=== PATIENT | female | born 1950 | race Caucasian/White ===

== ENCOUNTER → 2020-07-12 12:33 | Outpatient (CLI) | payer MEDICARE | END | disposition home or self-care (01) | LOC: D.MRI 12:33 | PROVIDERS: ATTEND Emergency Medicine | DX: G35 Multiple sclerosis (principal); M79.601 Pain in right arm ==

== ENCOUNTER 2021-02-22 09:30 | Day surgery (SDC) | payer MEDICARE ==
[~2021-02-22] VITALS: Ht 149.9 cm; Wt 45.8 kg
[~2021-02-22 09:30] MED LIST: ALBUTEROL SULF8.5 GM INH; COZAAR25 MG PO; CRESTOR10 MG PO; GLIMEPIRIDE4 MG PO; GLUCOPHAGE1000 MG PO; HYDROCODON-ACE1 EA10 PO; KLONOPIN0.5 MG PO; REMERON15 MG PO; TOPROL XL25 MG PO; VYVANSE50 MG PO; XARELTO20 MG PO; ZOFRAN4 MG PO
[2021-02-22 10:18] LABS: BASOPHILS 0.6 % (0-2); EOSINOPHILS 7.3 % (0-7); HEMATOCRIT 34.4 % (36.0-48.0); HEMOGLOBIN 10.9 g/dL (12-16); IMMATURE GRANULOCYTES 0.5 % (0-5); LYMPHOCYTE ABS# 1.62 10x3/uL (1.18-3.74); LYMPHOCYTES 13.4 % (15-50); MCH 28.1 pg (26.0-34.0); MCHC 31.7 g/dL (31.0-37.0); MCV 88.7 fL (80.0-100.0); MEAN PLATELET VOLUME 10.4 fL (7.4-10.4); MONOCYTES 6.5 % (2-11); NEUTROPHIL ABS# 8.65 10x3/uL (1.56-6.13); NEUTROPHILS 71.7 % (40-80); PLATELET COUNT 305 10x3/uL (130-400); RBC 3.88 10x6/uL (4.00-5.40); RDW 13.6 % (11.5-14.5); WBC 12.1 10x3/uL (4.8-10.8)
[2021-02-22 10:28] LABS: ANION GAP 14.1 mmol/L (8-16); CALCIUM 9.1 mg/dL (8.5-10.1); CARBON DIOXIDE 23.3 mmol/L (21.0-32.0); POTASSIUM - SERUM 4.4 mmol/L (3.5-5.1)
[2021-02-22 10:29] LABS: APTT 35.9 SECONDS (22.8-39.4); INR 1.12 (0.85-1.17); PROTIME 13.3 SECONDS (11.6-15.0)
[2021-02-22] MEDS ORDERED: COZAAR100 MG PO (11:00)
[2021-02-22 11:14] VITALS: BP 98/44; Ht 149.9 cm; Wt 45.8 kg
--- NOTE | 2021-02-22 16:26 | NUR ---
PT DC INSTRUCTIONS REVEIWED AT THIS TIME, PT VERBALIZES UNDERSTNADING, PT IV REMOVED AT THIS TIME, INTACT, NO REDNESS OR SWELLING NOTED AT SITE.
--- NOTE | 2021-02-22 17:09 | NUR ---
PT LEFT UNIT VIA WC AT 1704
--- NOTE | 2021-02-23 10:36 | OP ---
PATIENT NAME: TIA JIMENEZ MEDICAL RECORD: [id number] :54 LOCATION:D.OPS ADMISSION DATE: SURGEON: JAIRO LARSON MD DATE OF OPERATION: 02/22/2021 PREOPERATIVE DIAGNOSES: 1. Metastatic pancreatic cancer. 2. Hypertension. 3. Diabetes mellitus. 4. Coronary artery disease. 5. Peripheral vascular disease. 6. Carotid artery stenosis. POSTOPERATIVE DIAGNOSES: 1. Metastatic pancreatic cancer. 2. Hypertension. 3. Diabetes mellitus. 4. Coronary artery disease. 5. Peripheral vascular disease. 6. Carotid artery stenosis. PROCEDURE: 1. Left subclavian vein PowerPort placement. 2. Fluoroscopic interpretation. SURGEON: Jairo Larson M.D. DESCRIPTION OF PROCEDURE: The patient's left chest was prepped and draped in sterile fashion. A needle was used to cannulate the left subclavian vein. A guidewire was advanced with ease. Fluoroscopy was used to note that the wire was in good position in the venous system. The skin incision was made on the left superior lateral chest and a subcutaneous pouch was made over the pectoral fascia. The catheter was tunneled between this pouch and the wire exit site. The port was sutured to the pectoral fascia with interrupted 2-0 Prolenes times 2. The port was then cut with a beveled tip at 21 cm. The dilator trocar device was placed over the wire and the wire and dilator were removed. The catheter tip was advanced through the trocar and the trocar was then removed. The catheter tip was noted to be resting in good position at the right atrial superior vena caval junction. The catheter aspirated nonpulsatile dark blood and flushed easily with heparinized saline. The subcutaneous tissues were reapproximated with interrupted 3-0 Vicryl and the skin was closed with running subcutaneous 5-0 Monocryl. COMPLICATIONS: None. CONDITION: Stable. ANESTHESIA: General endotracheal. BLOOD LOSS: Minimal. TRANSINT:[id number] Voice Confirmation ID: [id number] DOCUMENT ID: [id number] OPERATIVE REPORT [id number] TIA JIMENEZ JAIRO LARSON MD at 1036 CC: RAFFAELE LE MD [id number] DICTATION DATE: 02/22/21 9035 CRIMINAL INVESTIGATOR: 02/22/21 [id number] [facility] 02/22/21 [facility] [address] [place] [address]
== END 2021-02-22 17:04 | disposition home or self-care (01) ==
LOC: D.OPS 09:30
PROVIDERS: Anesthesiology; ATTEND Surgery
DX: C25.9 Malignant neoplasm of pancreas, unspecified (principal); I10 Essential (primary) hypertension; E11.9 Type 2 diabetes mellitus without complications; I25.10 Atherosclerotic heart disease of native coronary artery without angina pectoris; I73.9 Peripheral vascular disease, unspecified; I65.29 Occlusion and stenosis of unspecified carotid artery; Z79.84 Long term (current) use of oral hypoglycemic drugs

== ENCOUNTER → 2021-04-06 13:10 | Outpatient (CLI) | payer MEDICARE ==
[2021-02-22 11:14] VITALS: BMI 20.4
[~2021-04-06 13:10] MED LIST changes: +COZAAR100 MG PO
== END | disposition home or self-care (01) ==
LOC: D.RAD 13:10
PROVIDERS: ATTEND Legal Medicine
DX: R07.1 Chest pain on breathing (principal)